=== PATIENT | female | born 1995 | race American Indian/Alaskan Native ===

== ENCOUNTER 2021-09-15 08:29 | Inpatient (IN) | payer OTHER, MEDICAID ==
[2021-09-15 10:51] LABS: Hemoglobin 11.6 gm/dl (10.1-14.3); Mean Corpuscular HGB Conc 33 % (30-34); Mean Corpuscular Volume 81 fl (79-97); Platelet Count 307 K/mm3 (140-440); Red Blood Count 4.33 M/mm3 (3.65-5.03); Red Cell Distribution Width 15.3 % (13.2-15.2)
--- NOTE | 2021-09-15 10:59 | History and Physical Report ---
History of Present Illness Date of examination: 09/15/21 History of present illness: EDC Calculations by LMP: 09/16/2021 Past History : 3 Living Children: 0 Elect. 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 Factors: Smoked Tobacco Use: Never smoker Smokeless Tobacco Use: Never Passive Smoke Exposure: no HIV High Risk Behavior: no Exercise: no Seatbelt Use: 100 % PAP Smear History: Date of Last PAP Smear: 08/16/2018 Results: Normal Past Medical History Surgery (Non-claims representative): Negative Past Surgical History Abnormal PAP: negative AYSE Exposure: negative Infertility: negative Uterine Anomaly: negative Uterine Surgery (not C/S): negative Other Gynecologic Problems: negative Medical History Comments: negative Family Hx: mother-HTN, GM 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 of genital herpes: no Partner hx. of genital herpes: no Varicella/Chicken Pox Status: Immunized Genetic History Congenital Heart Defect: Mom: no Dad: no Jose Armando Disease: Mom: no Dad: no Thalassemia Mom: no Dad: no Neural Tube Defect Mom: no Dad: no Down's Syndrome Mom: no Dad: no Hieu-Sachs Mom: no Dad: no Sickle Cell Disease/Trait Mom: no Dad: no Hemophilia Mom: no Dad: no Muscular Dystrophy Mom: no Dad: no Cystic Fibrosis Mom: no Dad: no Grace Chorea Mom: no Dad: no Mental Retardation Mom: no Dad: no Fragile X Mom: no Dad: no Other Genetic/Chromosomal Disorder Mom: no Dad: no Child w/other defect Mom: no Dad: no Enviromental Exposures Xray Exposure: no Medication, drug, or alcohol use since LMP: no Chemical/Other Exposure: no Exposure to Cat Liter: no Hx of Parvovirus (Fifth Disease): no Occupational Exposure to Children: none Active Medications (reviewed today): None Current Allergies (reviewed today): No known allergies Past History Past Medical History: other (see HPI) Past Surgical History: other (see HPI) PERSONNEL MANAGER History: other (see HPI) Family/Genetic History: other (see HPI) - Obstetrical History Expected Date of Delivery: 09/16/21 Actual Gestation: 39 Week(s) 6 Day(s) : 3 Para: 0 Hx # Term Pregnancies: 0 Number of Pregnancies: 0 Spontaneous Abortions: 0 Induced : 2 Number of Living Children: 0 Medications and Allergies Allergies Allergy/AdvReac Type Severity Reaction Status Date / Time No Known Allergies Allergy Verified 09/15/21 09:22 Home Medications Medication Instructions Recorded Confirmed Last Taken Type Aspirin [[place]] 81 mg PO DAILY 09/15/21 09/15/21 09/14/21 History No.137/Iron/Folic Acd 1 tab PO DAILY 09/15/21 09/15/21 09/14/21 20:00 History [[facility] Tablet] Active Meds: Active Medications Carboprost Tromethamine (Carboprost Tromethamine 250 Mcg/1 Ml Inj) 250 mcg IM ONCE PRN PRN Reason: Uterine Bleeding Ephedrine Sulfate (Ephedrine Sulfate 50 Mg/1 Ml Inj) 10 mg IV Q2M PRN PRN Reason: Hypotension Oxytocin/Sodium Chloride (Pitocin/Ns 30 Unit/500ml) 30 units in 500 mls @ 2 mls/hr IV TITR DASIA; Protocol Lactated Ringer's (Lactated Ringers) 1,000 mls @ 125 mls/hr IV DIRECT DASIA Oxytocin/Sodium Chloride (Pitocin/Ns 30 Unit/500ml) 30 units in 500 mls @ 40 mls/hr IV TITR DASIA; Protocol Lidocaine (Lidocaine (2%) 20 Mg/1 Ml Vial 20 Ml Mdv) 20 ml INFILTRATI ONCE ONE Stop: 09/15/21 10:53 Loperamide HCl (Loperamide 2 Mg Cap) 2 mg PO ONCE PRN PRN Reason: give with Hemabate Methylergonovine Maleate (Methylergonovine Maleate 0.2 Mg/Ml Vial) 0.2 mg IM ONCE PRN PRN Reason: Uterine Bleeding Mineral Oil (Mineral Oil 30 Ml Oral Liqd) 30 ml PO QHS PRN PRN Reason: Constipation Oxytocin (Oxytocin 10 Unit/1 Ml Inj) 10 unit IM ONCE PRN PRN Reason: Uterine Bleeding Terbutaline Sulfate (Terbutaline 1 Mg/1 Ml Inj) 0.25 mg SUB-Q ONCE PRN PRN Reason: Hyperstimulation/Hypertonicity Review of Systems All systems: negative - Vital Signs Vital signs: Vital Signs Pulse BP 100 H 140/81 09/15/21 09:04 09/15/21 09:04 Temp Pulse Resp BP Pulse Ox 113 H 141/82 09/15/21 10:25 09/15/21 10:25 - Physical Exam Breasts: Positive: normal Cardiovascular: Regular rate Lungs: Positive: Normal air movement Abdomen: Positive: normal appearance, soft Genitourinary (Female): Positive: normal external genitalia, normal perenium Vulva: both: normal Uterus: Positive: normal size, normal contour Extremities: Positive: normal Deep Tendon Reflex Grade: Normal +2 - Obstetrical FHR: auscultation normal Uterine Contraction Monitor Mode: External Cervical Dilatation: 4.5 (per sourcing consultant) Uterine Contraction Pattern: Regular Uterine Tone Measurement Phase: Contraction Uterine Contraction Intensity: Mild Results Result Diagrams: 09/15/21 10:25 09/15/21 10:25 Abnormal lab results 09/15/21 Range/Units 10:25 MCH 27 L (28-32) pg RDW 15.3 H (13.2-15.2) % All other labs normal. Assessment and Plan 26y/o @ 39+6 weeks presented with contractions. GBS neg. complicated by maternal obesity. EFW 7#8oz by [facility] office 09/11/2021. Admit for labor, epidural PRN, augment with pitocin PRN. - Patient Problems (1) BMI 40.0-44.9, adult Current Visit: Yes Status: Acute (2) 39 weeks gestation of Current Visit: Yes Status: Acute (3) Elevated blood pressure reading Current Visit: Yes Status: Acute Plan to address problem: pre-e labs ordered no hx HTN during Will monitor closely
[2021-09-15] MEDS ORDERED: CARBOPROST TROMETHAMINE 250 MCG/1 ML INJ IM PRN (11:00)
[2021-09-15] MEDS ORDERED: ePHEDrine SULFATE 50 MG/1 ML INJ IV PRN ×2 (11:00→15:30)
[2021-09-15] MEDS ORDERED: OXYTOCIN DRIP 30 UNITS/500 ML BAG IV SCH ×2 (11:00)
[2021-09-15] MEDS ORDERED: BUTORPHANOL 2 MG/1 ML INJ IV PRN (11:00)
[2021-09-15] MEDS ORDERED: ACETAMINOPHEN 325 MG TAB PO PRN (11:00)
[2021-09-15] MEDS: LACTATED RINGERS 1,000 ML IV SCH ×3 (11:10→14:33)
[2021-09-15] MEDS ORDERED: LIDOCAINE (2%) 20 MG/1 ML VIAL 20 ML MDV INFILTRATI NR (11:30)
[2021-09-15] MEDS ORDERED: miSOPROStol 200 MCG TAB PR PRN (11:30)
[2021-09-15] MEDS ORDERED: fentaNYL 100 MCG/2 ML INJ IV PRN (12:00)
[2021-09-15] MEDS ORDERED: OXYTOCIN 10 UNIT/1 ML INJ IM PRN (12:00)
[2021-09-15] MEDS ORDERED: METHYLERGONOVINE MALEATE 0.2 MG/ML VIAL IM PRN (12:00)
[2021-09-15] MEDS ORDERED: LOPERAMIDE 2 MG CAP PO PRN (12:00)
[2021-09-15] MEDS ORDERED: TERBUTALINE 1 MG/1 ML INJ SUB-Q PRN (12:00)
[2021-09-15] MEDS ORDERED: ONDANSETRON 4 MG/2 ML INJ IV PRN ×2 (12:00→15:30)
[2021-09-15 12:17] LABS: Alanine Aminotransferase 13 units/L (7-56); Uric Acid 6.4 mg/dL (3.5-7.6)
[2021-09-15 15:06] LABS: Bacteria,Urine 1+ /HPF (Negative); Bilirubin,Urine NEG (Negative); Blood,Urine LG (Negative); Color,Urine Yellow (Yellow); Mucus,Urine FEW /HPF; Protein,Urine <15 mg/dL mg/dL (Negative); Urobilinogen,Urine < 2.0 mg/dL (<2.0)
[2021-09-15] MEDS ORDERED: LACTATED RINGERS 250 ML IV SOLN IV ONE (15:07)
--- NOTE | 2021-09-15 15:09 | Anesthesia Consultation ---
Anesthesia Consult and Med Hx Date of service: 09/15/21 - Airway Anesthetic Teeth Evaluation: Good ROM Head & Neck: Adequate Mental/Hyoid Distance: Adequate Mallampati Class: Class III Intubation Access Assessment: Possibly Difficult - Pulmonary Exam CTA: Yes - Cardiac Exam Cardiac Exam: RRR - Pre-Operative Health Status ASA Pre-Surgery Classification: ASA2 Proposed Anesthetic Plan: Epidural - Pulmonary Hx Smoking: No Hx Asthma: No Hx Sleep Apnea: No - Cardiovascular System Hx Hypertension: No Hx Heart Attack/AMI: No Hx Angina: No - Central Nervous System Hx Seizures: No Hx Psychiatric Problems: No - Gastrointestinal Hx Gastroesophageal Reflux Disease: No - Endocrine Hx Renal Disease: No Hx Liver Disease: No Hx Insulin Dependent Diabetes: No Hx Non-Insulin Dependent Diabetes: No Hx Hypothyroidism: No Hx Hyperthyroidism: No - Hematic Hx Anemia: No Hx Sickle Cell Disease: No - Other Systems Hx Alcohol Use: No Hx Obesity: Yes
--- NOTE | 2021-09-15 15:11 | Progress Note ---
Labor Epidural - Labor Epidural Start Time: 14:45 Stop Time: 15:05 Performed by:: RUSSELL HILLIARD Procedure: Patient is requesting epidural for labor and pain. H&P, labs were reviewed. Patient IDed, H&P reviewed, all questions and concerns were answered, and consent was signed. Timeout was performed at bedside. Patient in sitting position. Sterile prep and drape was performed. 3ml of 1% lidocaine skin wheal at L[3]- L [4]. 17-gauge Tuohy epidural needle was advanced to loss of resistance with air technique 7cm. Negative CSF negative blood. Epidural catheter advanced to [12] centimeters. [Positive] Aspiration of heme [Positive] test dose. Catheter removed and flushed. 3ml of 1% lidocaine skin wheal at L[2]- L [3]. 17-gauge Tuohy epidural needle was advanced to loss of resistance with air technique 7cm. Negative CSF negative blood. Epidural catheter advanced to [13] centimeters. [negative] Aspiration [negative] test dose. Sterile dressing applied. Patient tolerated procedure.
[2021-09-15] MEDS ORDERED: NalbUPHINE 10 MG/1 ML INJ IV PRN (15:30)
[2021-09-15] MEDS ORDERED: NALOXONE 2 MG/2 ML INJ IV PRN (15:30)
[2021-09-15] MEDS ORDERED: diphenhydrAMINE 50 MG/ML VIAL IV PRN (15:30)
--- NOTE | 2021-09-15 17:06 | Progress Note ---
Assessment and Plan Pt comfortable in bed after Epidural. FOB at bedside no concerns. AROM clear fluid. Pitocin at 6mU/hr. Anticipate . - Patient Problems (1) BMI 40.0-44.9, adult Current Visit: Yes Status: Acute (2) 39 weeks gestation of Current Visit: Yes Status: Acute Plan to address problem: Augmentation with pitocin AROM clear (3) Elevated blood pressure reading Current Visit: Yes Status: Acute Plan to address problem: Continue to monitor B/P Lab work reviewed and normal No s/s of Pre-E Subjective - Subjective Date of service: 09/15/21 Interval history: EDC Calculations by LMP: 09/16/2021 Past History : 3 Living Children: 0 Elect. 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 Tobacco Use: Never smoker Smokeless Tobacco Use: Never Passive Smoke Exposure: no HIV High Risk Behavior: no Exercise: no Seatbelt Use: 100 % PAP Smear History: Date of Last PAP Smear: 08/16/2018 Results: Normal Past Medical History Surgery (Non-art sales consultant): Negative Past Surgical History Abnormal PAP: negative AYSE Exposure: negative Infertility: negative Uterine Anomaly: negative Uterine Surgery (not C/S): negative Other Gynecologic Problems: negative Medical History Comments: negative Family Hx: mother-HTN, GM 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 of genital herpes: no Partner hx. of genital herpes: no Varicella/Chicken Pox Status: Immunized Genetic History Congenital Heart Defect: Mom: no Dad: no Jose Armando Disease: Mom: no Dad: no Thalassemia Mom: no Dad: no Neural Tube Defect Mom: no Dad: no Down's Syndrome Mom: no Dad: no Hieu-Sachs Mom: no Dad: no Sickle Cell Disease/Trait Mom: no Dad: no Hemophilia Mom: no Dad: no Muscular Dystrophy Mom: no Dad: no Cystic Fibrosis Mom: no Dad: no [place] Chorea Mom: no Dad: no Mental Retardation Mom: no Dad: no Fragile X Mom: no Dad: no Other Genetic/Chromosomal Disorder Mom: no Dad: no Child w/other defect Mom: no Dad: no Enviromental Exposures Xray Exposure: no Medication, drug, or alcohol use since LMP: no Chemical/Other Exposure: no Exposure to Cat Liter: no Hx of Parvovirus (Fifth Disease): no Occupational Exposure to Children: none Active Medications (reviewed today): None Current Allergies (reviewed today): No known allergies Patient reports: new complaints, movement normal Objective - Vital Signs Vital Signs: Vital Signs - 12hr 09/15/21 09/15/21 09/15/21 09:04 10:25 11:12 Temperature 98.1 F Pulse Rate 100 H 113 H Respiratory 16 Rate Blood Pressure 140/81 141/82 O2 Sat by Pulse Oximetry O2 Sat by Pulse Oximetry [ Bilateral Throughout] 09/15/21 09/15/21 09/15/21 12:30 12:48 12:53 Temperature Pulse Rate 89 97 H Respiratory Rate Blood Pressure O2 Sat by Pulse 98 99 Oximetry O2 Sat by Pulse 98 Oximetry [ Bilateral Throughout] 09/15/21 09/15/21 09/15/21 12:58 13:03 13:08 Temperature Pulse Rate 112 H 94 H 103 H Respiratory Rate Blood Pressure O2 Sat by Pulse 98 99 98 Oximetry O2 Sat by Pulse Oximetry [ Bilateral Throughout] 09/15/21 09/15/21 09/15/21 13:13 13:18 13:23 Temperature Pulse Rate 92 H 86 87 Respiratory Rate Blood Pressure O2 Sat by Pulse 98 99 98 Oximetry O2 Sat by Pulse Oximetry [ Bilateral Throughout] 09/15/21 09/15/21 09/15/21 13:28 13:33 13:38 Temperature Pulse Rate 113 H 85 118 H Respiratory Rate Blood Pressure O2 Sat by Pulse 99 97 94 Oximetry O2 Sat by Pulse Oximetry [ Bilateral Throughout] 09/15/21 09/15/21 09/15/21 13:41 13:43 13:48 Temperature Pulse Rate 87 84 83 Respiratory Rate Blood Pressure O2 Sat by Pulse 94 95 98 Oximetry O2 Sat by Pulse Oximetry [ Bilateral Throughout] 09/15/21 09/15/21 09/15/21 13:53 13:58 14:03 Temperature Pulse Rate 105 H 84 112 H Respiratory Rate Blood Pressure O2 Sat by Pulse 97 99 98 Oximetry O2 Sat by Pulse Oximetry [ Bilateral Throughout] 09/15/21 09/15/21 09/15/21 14:08 14:13 14:18 Temperature Pulse Rate 87 88 109 H Respiratory Rate Blood Pressure O2 Sat by Pulse 97 99 99 Oximetry O2 Sat by Pulse Oximetry [ Bilateral Throughout] 09/15/21 09/15/21 09/15/21 14:23 14:28 14:32 Temperature Pulse Rate 85 116 H Respiratory Rate Blood Pressure O2 Sat by Pulse 98 99 38 L Oximetry O2 Sat by Pulse Oximetry [ Bilateral Throughout] 09/15/21 09/15/21 09/15/21 14:33 14:37 14:38 Temperature Pulse Rate 78 120 H 114 H Respiratory Rate Blood Pressure 148/93 O2 Sat by Pulse 67 L 98 Oximetry O2 Sat by Pulse Oximetry [ Bilateral Throughout] 09/15/21 09/15/21 09/15/21 14:39 14:41 14:43 Temperature Pulse Rate 116 H 117 H 104 H Respiratory Rate Blood Pressure 158/96 162/88 157/88 O2 Sat by Pulse 97 Oximetry O2 Sat by Pulse Oximetry [ Bilateral Throughout] 09/15/21 09/15/21 09/15/21 14:45 14:47 14:48 Temperature Pulse Rate 142 H 114 H 123 H Respiratory Rate Blood Pressure 160/75 163/85 O2 Sat by Pulse 95 Oximetry O2 Sat by Pulse Oximetry [ Bilateral Throughout] 09/15/21 09/15/21 09/15/21 14:49 14:51 14:53 Temperature Pulse Rate 129 H 116 H 118 H Respiratory Rate Blood Pressure 161/74 159/78 155/62 O2 Sat by Pulse 97 Oximetry O2 Sat by Pulse Oximetry [ Bilateral Throughout] 09/15/21 09/15/21 09/15/21 14:55 14:57 14:58 Temperature Pulse Rate 120 H 130 H 122 H Respiratory Rate Blood Pressure 171/82 161/73 O2 Sat by Pulse 96 Oximetry O2 Sat by Pulse Oximetry [ Bilateral Throughout] 09/15/21 09/15/21 09/15/21 14:59 15:01 15:03 Temperature Pulse Rate 117 H 115 H 107 H Respiratory Rate Blood Pressure 163/80 156/78 166/85 O2 Sat by Pulse 93 Oximetry O2 Sat by Pulse Oximetry [ Bilateral Throughout] 09/15/21 09/15/21 09/15/21 15:05 15:07 15:08 Temperature Pulse Rate 107 H 103 H 99 H Respiratory Rate Blood Pressure 147/83 141/76 O2 Sat by Pulse 94 98 Oximetry O2 Sat by Pulse Oximetry [ Bilateral Throughout] 09/15/21 09/15/21 09/15/21 15:13 15:18 15:21 Temperature Pulse Rate 119 H 98 H 108 H Respiratory Rate Blood Pressure O2 Sat by Pulse 98 96 86 Oximetry O2 Sat by Pulse Oximetry [ Bilateral Throughout] 09/15/21 09/15/21 09/15/21 15:23 15:28 15:33 Temperature Pulse Rate 103 H 121 H 113 H Respiratory Rate Blood Pressure 130/75 O2 Sat by Pulse 85 100 93 Oximetry O2 Sat by Pulse Oximetry [ Bilateral Throughout] 09/15/21 09/15/21 09/15/21 15:38 15:43 15:48 Temperature Pulse Rate 99 H 97 H 114 H Respiratory Rate Blood Pressure O2 Sat by Pulse 98 97 97 Oximetry O2 Sat by Pulse Oximetry [ Bilateral Throughout] 09/15/21 09/15/21 09/15/21 15:53 15:58 16:03 Temperature Pulse Rate 107 H 114 H 110 H Respiratory Rate Blood Pressure O2 Sat by Pulse 97 97 98 Oximetry O2 Sat by Pulse Oximetry [ Bilateral Throughout] 09/15/21 09/15/21 09/15/21 16:08 16:13 16:18 Temperature Pulse Rate 106 H 103 H 104 H Respiratory Rate Blood Pressure 106/70 O2 Sat by Pulse 96 97 98 Oximetry O2 Sat by Pulse Oximetry [ Bilateral Throughout] 09/15/21 09/15/21 09/15/21 16:22 16:23 16:28 Temperature Pulse Rate 123 H 90 107 H Respiratory Rate Blood Pressure 103/55 O2 Sat by Pulse 97 98 Oximetry O2 Sat by Pulse Oximetry [ Bilateral Throughout] 09/15/21 09/15/21 09/15/21 16:33 16:38 16:39 Temperature Pulse Rate 114 H 97 H 89 Respiratory Rate Blood Pressure 110/74 O2 Sat by Pulse 97 98 Oximetry O2 Sat by Pulse Oximetry [ Bilateral Throughout] 09/15/21 09/15/21 09/15/21 16:43 16:48 16:52 Temperature Pulse Rate 108 H 111 H 104 H Respiratory Rate Blood Pressure 118/74 O2 Sat by Pulse 97 98 94 Oximetry O2 Sat by Pulse Oximetry [ Bilateral Throughout] 09/15/21 09/15/21 16:53 16:58 Temperature Pulse Rate 96 H 101 H Respiratory Rate Blood Pressure O2 Sat by Pulse 96 96 Oximetry O2 Sat by Pulse Oximetry [ Bilateral Throughout] - Exam Breasts: normal Abdomen: Present: normal appearance, soft Vulva: both: normal Uterus: Present: normal, other (gravid) FHR: category 1 Uterine Contraction Monitor Mode: External Cervical Dilatation: 6 (AROM clear) Cervical Effacement Percentage: 90 station: 0 Uterine Contraction Frequency (min): q4-5 mins Uterine Contraction Pattern: Irregular Uterine Tone Measurement Phase: Resting Uterine Contraction Intensity: Mild Extremities: normal - Labs Labs: Abnormal Labs 09/15/21 09/15/21 10:25 10:25 MCH 27 L RDW 15.3 H Lactate Dehydrogenase 182 H Laboratory Results - last 24 hr 09/15/21 09/15/21 09/15/21 10:25 10:25 10:25 WBC 9.0 RBC 4.33 Hgb 11.6 Hct 35.0 MCV 81 MCH 27 L MCHC 33 RDW 15.3 H Plt Count 307 Creatinine 0.6 Estimated GFR > 60 Uric Acid 6.4 AST 15 ALT 13 Lactate Dehydrogenase 182 H Urine Color Urine Turbidity Urine pH Ur Specific [place] Urine Protein Urine Glucose (UA) Urine Ketones Urine Blood Urine Nitrite Urine Bilirubin Urine Urobilinogen Ur Leukocyte Esterase Urine WBC (Auto) Urine RBC (Auto) U Epithel Cells (Auto) Urine Bacteria (Auto) Urine Mucus Syphilis IgG/IgM Ab Nonreactive Blood Type Antibody Screen 09/15/21 09/15/21 10:35 14:48 WBC RBC Hgb Hct MCV MCH MCHC RDW Plt Count Creatinine Estimated GFR Uric Acid AST ALT Lactate Dehydrogenase Urine Color Yellow Urine Turbidity Clear Urine pH 7.0 Ur Specific [place] 1.005 Urine Protein <15 mg/dl Urine Glucose (UA) Neg Urine Ketones 20 Urine Blood Lg Urine Nitrite Neg Urine Bilirubin Neg Urine Urobilinogen < 2.0 Ur Leukocyte Esterase Neg Urine WBC (Auto) 2.0 Urine RBC (Auto) 1.0 U Epithel Cells (Auto) 7.0 Urine Bacteria (Auto) 1+ Urine Mucus Few Syphilis IgG/IgM Ab Blood Type A POSITIVE Antibody Screen Negative
[2021-09-15] MEDS: fentaNYL-BUPIV 2 MCG/ML-0.125% 200 MCG/100 ML BAG EPIDURAL SCH (17:41)
--- NOTE | 2021-09-15 19:52 | Progress Note ---
Assessment and Plan No significant cervical change since last SVE. IUPC placed without difficulty and functioning well. Will continue to titrate pitocin and change positions. Anticipate . ANGELES Pittman CNM - Patient Problems (1) BMI 40.0-44.9, adult Current Visit: Yes Status: Acute (2) 39 weeks gestation of Current Visit: Yes Status: Acute (3) Elevated blood pressure reading Current Visit: Yes Status: Acute Subjective - Subjective Date of service: 09/15/21 Principal diagnosis: IUP @39.6 labor Interval history: EDC Calculations by LMP: 09/16/2021 Past History : 3 Living Children: 0 Elect. 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 Risk Factors: Smoked Tobacco Use: Never smoker Smokeless Tobacco Use: Never Passive Smoke Exposure: no HIV High Risk Behavior: no Exercise: no Seatbelt Use: 100 % PAP Smear History: Date of Last PAP Smear: 08/16/2018 Results: Normal Past Medical History Surgery (Non-automatic seamer): Negative Past Surgical History Abnormal PAP: negative AYSE Exposure: negative Infertility: negative Uterine Anomaly: negative Uterine Surgery (not C/S): negative Other Gynecologic Problems: negative Medical History Comments: negative Family Hx: mother-HTN, GM Social Hx: no 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 of genital herpes: no Partner hx. of genital herpes: no Varicella/Chicken Pox Status: Immunized Genetic History Congenital Heart Defect: Mom: no Dad: no Jose Armando Disease: Mom: no Dad: no Thalassemia Mom: no Dad: no Neural Tube Defect Mom: no Dad: no Down's Syndrome Mom: no Dad: no Hieu-Sachs Mom: no Dad: no Sickle Cell Disease/Trait Mom: no Dad: no Hemophilia Mom: no Dad: no Muscular Dystrophy Mom: no Dad: no Cystic Fibrosis Mom: no Dad: no [place] Chorea Mom: no Dad: no Mental Retardation Mom: no Dad: no Fragile X Mom: no Dad: no Other Genetic/Chromosomal Disorder Mom: no Dad: no Child w/other defect Mom: no Dad: no Enviromental Exposures Xray Exposure: no Medication, drug, or alcohol use since LMP: no Chemical/Other Exposure: no Exposure to Cat Liter: no Hx of Parvovirus (Fifth Disease): no Occupational Exposure to Children: none Active Medications (reviewed today): None Current Allergies (reviewed today): No known allergies Patient reports: movement normal, no new complaints Objective - Vital Signs Vital Signs: Vital Signs - 12hr 09/15/21 09/15/21 09/15/21 09:04 10:25 11:12 Temperature 98.1 F Pulse Rate 100 H 113 H Respiratory 16 Rate Blood Pressure 140/81 141/82 O2 Sat by Pulse Oximetry O2 Sat by Pulse Oximetry [ Bilateral Throughout] 09/15/21 09/15/21 09/15/21 12:30 12:48 12:53 Temperature Pulse Rate 89 97 H Respiratory Rate Blood Pressure O2 Sat by Pulse 98 99 Oximetry O2 Sat by Pulse 98 Oximetry [ Bilateral Throughout] 09/15/21 09/15/21 09/15/21 12:58 13:03 13:08 Temperature Pulse Rate 112 H 94 H 103 H Respiratory Rate Blood Pressure O2 Sat by Pulse 98 99 98 Oximetry O2 Sat by Pulse Oximetry [ Bilateral Throughout] 09/15/21 09/15/21 09/15/21 13:13 13:18 13:23 Temperature Pulse Rate 92 H 86 87 Respiratory Rate Blood Pressure O2 Sat by Pulse 98 99 98 Oximetry O2 Sat by Pulse Oximetry [ Bilateral Throughout] 09/15/21 09/15/21 09/15/21 13:28 13:33 13:38 Temperature Pulse Rate 113 H 85 118 H Respiratory Rate Blood Pressure O2 Sat by Pulse 99 97 94 Oximetry O2 Sat by Pulse Oximetry [ Bilateral Throughout] 09/15/21 09/15/21 09/15/21 13:41 13:43 13:48 Temperature Pulse Rate 87 84 83 Respiratory Rate Blood Pressure O2 Sat by Pulse 94 95 98 Oximetry O2 Sat by Pulse Oximetry [ Bilateral Throughout] 09/15/21 09/15/21 09/15/21 13:53 13:58 14:03 Temperature Pulse Rate 105 H 84 112 H Respiratory Rate Blood Pressure O2 Sat by Pulse 97 99 98 Oximetry O2 Sat by Pulse Oximetry [ Bilateral Throughout] 09/15/21 09/15/2109/15/22 14:08 14:13 14:18 Temperature Pulse Rate 87 88 109 H Respiratory Rate Blood Pressure O2 Sat by Pulse 97 99 99 Oximetry O2 Sat by Pulse Oximetry [ Bilateral Throughout] 09/15/21 09/15/21 09/15/21 14:23 14:28 14:32 Temperature Pulse Rate 85 116 H Respiratory Rate Blood Pressure O2 Sat by Pulse 98 99 38 L Oximetry O2 Sat by Pulse Oximetry [ Bilateral Throughout] 09/15/21 09/15/21 09/15/21 14:33 14:37 14:38 Temperature Pulse Rate 78 120 H 114 H Respiratory Rate Blood Pressure 148/93 O2 Sat by Pulse 67 L 98 Oximetry O2 Sat by Pulse Oximetry [ Bilateral Throughout] 09/15/21 09/15/21 09/15/21 14:39 14:41 14:43 Temperature Pulse Rate 116 H 117 H 104 H Respiratory Rate Blood Pressure 158/96 162/88 157/88 O2 Sat by Pulse 97 Oximetry O2 Sat by Pulse Oximetry [ Bilateral Throughout] 09/15/21 09/15/21 09/15/21 14:45 14:47 14:48 Temperature Pulse Rate 142 H 114 H 123 H Respiratory Rate Blood Pressure 160/75 163/85 O2 Sat by Pulse 95 Oximetry O2 Sat by Pulse Oximetry [ Bilateral Throughout] 09/15/21 09/15/21 09/15/21 14:49 14:51 14:53 Temperature Pulse Rate 129 H 116 H 118 H Respiratory Rate Blood Pressure 161/74 159/78 155/62 O2 Sat by Pulse 97 Oximetry O2 Sat by Pulse Oximetry [ Bilateral Throughout] 09/15/21 09/15/21 09/15/21 14:55 14:57 14:58 Temperature Pulse Rate 120 H 130 H 122 H Respiratory Rate Blood Pressure 171/82 161/73 O2 Sat by Pulse 96 Oximetry O2 Sat by Pulse Oximetry [ Bilateral Throughout] 09/15/21 09/15/21 09/15/21 14:59 15:01 15:03 Temperature Pulse Rate 117 H 115 H 107 H Respiratory Rate Blood Pressure 163/80 156/78 166/85 O2 Sat by Pulse 93 Oximetry O2 Sat by Pulse Oximetry [ Bilateral Throughout] 09/15/21 09/15/21 09/15/21 15:05 15:07 15:08 Temperature Pulse Rate 107 H 103 H 99 H Respiratory Rate Blood Pressure 147/83 141/76 O2 Sat by Pulse 94 98 Oximetry O2 Sat by Pulse Oximetry [ Bilateral Throughout] 09/15/21 09/15/21 09/15/21 15:13 15:18 15:21 Temperature Pulse Rate 119 H 98 H 108 H Respiratory Rate Blood Pressure O2 Sat by Pulse 98 96 86 Oximetry O2 Sat by Pulse Oximetry [ Bilateral Throughout] 09/15/21 09/15/21 09/15/21 15:23 15:28 15:33 Temperature Pulse Rate 103 H 121 H 113 H Respiratory Rate Blood Pressure 130/75 O2 Sat by Pulse 85 100 93 Oximetry O2 Sat by Pulse Oximetry [ Bilateral Throughout] 09/15/21 09/15/21 09/15/21 15:38 15:43 15:48 Temperature Pulse Rate 99 H 97 H 114 H Respiratory Rate Blood Pressure O2 Sat by Pulse 98 97 97 Oximetry O2 Sat by Pulse Oximetry [ Bilateral Throughout] 09/15/21 09/15/21 09/15/21 15:53 15:58 16:03 Temperature Pulse Rate 107 H 114 H 110 H Respiratory Rate Blood Pressure O2 Sat by Pulse 97 97 98 Oximetry O2 Sat by Pulse Oximetry [ Bilateral Throughout] 09/15/21 09/15/21 09/15/21 16:08 16:13 16:18 Temperature Pulse Rate 106 H 103 H 104 H Respiratory Rate Blood Pressure 106/70 O2 Sat by Pulse 96 97 98 Oximetry O2 Sat by Pulse Oximetry [ Bilateral Throughout] 09/15/21 09/15/21 09/15/21 16:22 16:23 16:28 Temperature Pulse Rate 123 H 90 107 H Respiratory Rate Blood Pressure 103/55 O2 Sat by Pulse 97 98 Oximetry O2 Sat by Pulse Oximetry [ Bilateral Throughout] 09/15/21 09/15/21 09/15/21 16:33 16:38 16:39 Temperature Pulse Rate 114 H 97 H 89 Respiratory Rate Blood Pressure 110/74 O2 Sat by Pulse 97 98 Oximetry O2 Sat by Pulse Oximetry [ Bilateral Throughout] 09/15/21 09/15/21 09/15/21 16:43 16:48 16:52 Temperature Pulse Rate 108 H 111 H 104 H Respiratory Rate Blood Pressure 118/74 O2 Sat by Pulse 97 98 94 Oximetry O2 Sat by Pulse Oximetry [ Bilateral Throughout] 09/15/21 09/15/21 09/15/21 16:53 16:58 17:03 Temperature Pulse Rate 96 H 101 H 89 Respiratory Rate Blood Pressure O2 Sat by Pulse 96 96 96 Oximetry O2 Sat by Pulse Oximetry [ Bilateral Throughout] 09/15/21 09/15/21 09/15/21 17:07 17:08 17:09 Temperature Pulse Rate 103 H 108 H 102 H Respiratory Rate Blood Pressure 108/53 O2 Sat by Pulse 94 96 Oximetry O2 Sat by Pulse Oximetry [ Bilateral Throughout] 09/15/21 09/15/21 09/15/21 17:13 17:18 17:22 Temperature Pulse Rate 88 90 89 Respiratory Rate Blood Pressure 101/56 O2 Sat by Pulse 97 94 Oximetry O2 Sat by Pulse Oximetry [ Bilateral Throughout] 09/15/21 09/15/21 09/15/21 17:23 17:28 17:33 Temperature Pulse Rate 94 H 90 90 Respiratory Rate Blood Pressure O2 Sat by Pulse 98 97 97 Oximetry O2 Sat by Pulse Oximetry [ Bilateral Throughout] 09/15/21 09/15/21 09/15/21 17:38 17:39 17:43 Temperature Pulse Rate 94 H 103 H 100 H Respiratory Rate Blood Pressure 122/72 O2 Sat by Pulse 93 97 Oximetry O2 Sat by Pulse Oximetry [ Bilateral Throughout] 09/15/21 09/15/21 09/15/21 17:48 17:50 17:52 Temperature Pulse Rate 107 H 97 H 90 Respiratory Rate Blood Pressure 128/69 O2 Sat by Pulse 97 94 Oximetry O2 Sat by Pulse Oximetry [ Bilateral Throughout] 09/15/21 09/15/21 09/15/21 17:53 17:58 18:03 Temperature Pulse Rate 105 H 90 91 H Respiratory Rate Blood Pressure O2 Sat by Pulse 100 96 99 Oximetry O2 Sat by Pulse Oximetry [ Bilateral Throughout] 09/15/21 09/15/21 09/15/21 18:07 18:08 18:13 Temperature Pulse Rate 70 95 H 87 Respiratory Rate Blood Pressure 115/71 O2 Sat by Pulse 76 L 97 99 Oximetry O2 Sat by Pulse Oximetry [ Bilateral Throughout] 09/15/21 09/15/21 09/15/21 18:18 18:23 18:28 Temperature Pulse Rate 88 99 H 88 Respiratory Rate Blood Pressure 121/67 O2 Sat by Pulse 98 98 99 Oximetry O2 Sat by Pulse Oximetry [ Bilateral Throughout] 0209/15/21 09/15/21 18:33 18:38 18:43 Temperature Pulse Rate 85 89 89 Respiratory Rate Blood Pressure 127/73 O2 Sat by Pulse 99 97 98 Oximetry O2 Sat by Pulse Oximetry [ Bilateral Throughout] 09/15/21 09/15/21 09/15/21 18:48 18:53 18:54 Temperature Pulse Rate 93 H 86 90 Respiratory Rate Blood Pressure 134/68 O2 Sat by Pulse 99 100 Oximetry O2 Sat by Pulse Oximetry [ Bilateral Throughout] 09/15/21 09/15/21 09/15/21 18:58 19:01 19:03 Temperature Pulse Rate 82 89 92 H Respiratory Rate Blood Pressure O2 Sat by Pulse 100 90 95 Oximetry O2 Sat by Pulse Oximetry [ Bilateral Throughout] 09/15/21 09/15/21 09/15/21 19:07 19:08 19:13 Temperature Pulse Rate 98 H 97 H 97 H Respiratory Rate Blood Pressure 129/70 O2 Sat by Pulse 98 97 Oximetry O2 Sat by Pulse Oximetry [ Bilateral Throughout] 09/15/21 09/15/21 09/15/21 19:18 19:23 19:28 Temperature Pulse Rate 87 87 85 Respiratory Rate Blood Pressure 135/78 O2 Sat by Pulse 96 98 96 Oximetry O2 Sat by Pulse Oximetry [ Bilateral Throughout] 09/15/21 09/15/21 09/15/21 19:33 19:35 19:38 Temperature Pulse Rate 86 93 H 102 H Respiratory Rate Blood Pressure 150/73 O2 Sat by Pulse 99 93 96 Oximetry O2 Sat by Pulse Oximetry [ Bilateral Throughout] 09/15/21 09/15/21 19:41 19:43 Temperature Pulse Rate 93 H 95 H Respiratory Rate Blood Pressure O2 Sat by Pulse 93 95 Oximetry O2 Sat by Pulse Oximetry [ Bilateral Throughout] - Exam Abdomen: Present: normal appearance Cervical Dilatation: 6 Cervical Effacement Percentage: 80 station: -1 Uterine Contraction Frequency (min): 2-3 Uterine Contraction Pattern: Regular Uterine Tone Measurement Phase: Resting Uterine Contraction Intensity: Moderate Extremities: normal - Labs Labs: Abnormal Labs 09/15/21 09/15/21 10:25 10:25 MCH 27 L RDW 15.3 H Lactate Dehydrogenase 182 H Laboratory Results - last 24 hr 09/15/21 09/15/21 09/15/21 10:25 10:25 10:25 WBC 9.0 RBC 4.33 Hgb 11.6 Hct 35.0 MCV 81 MCH 27 L MCHC 33 RDW 15.3 H Plt Count 307 Creatinine 0.6 Estimated GFR > 60 Uric Acid 6.4 AST 15 ALT 13 Lactate Dehydrogenase 182 H Urine Color Urine Turbidity Urine pH Ur Specific [place] Urine Protein Urine Glucose (UA) Urine Ketones Urine Blood Urine Nitrite Urine Bilirubin Urine Urobilinogen Ur Leukocyte Esterase Urine WBC (Auto) Urine RBC (Auto) U Epithel Cells (Auto) Urine Bacteria (Auto) Urine Mucus Syphilis IgG/IgM Ab Nonreactive Blood Type Antibody Screen 09/15/21 09/15/21 10:35 14:48 WBC RBC Hgb Hct MCV MCH MCHC RDW Plt Count Creatinine Estimated GFR Uric Acid AST ALT Lactate Dehydrogenase Urine Color Yellow Urine Turbidity Clear Urine pH 7.0 Ur Specific [place] 1.005 Urine Protein <15 mg/dl Urine Glucose (UA) Neg Urine Ketones 20 Urine Blood Lg Urine Nitrite Neg Urine Bilirubin Neg Urine Urobilinogen < 2.0 Ur Leukocyte Esterase Neg Urine WBC (Auto) 2.0 Urine RBC (Auto) 1.0 U Epithel Cells (Auto) 7.0 Urine Bacteria (Auto) 1+ Urine Mucus Few Syphilis IgG/IgM Ab Blood Type A POSITIVE Antibody Screen Negative
[2021-09-15] MEDS ORDERED: MINERAL OIL 30 ML ORAL LIQD PO PRN (22:00)
[2021-09-16] MEDS: LACTATED RINGERS 1,000 ML IV SCH (00:31)
[2021-09-16] MEDS: fentaNYL-BUPIV 2 MCG/ML-0.125% 200 MCG/100 ML BAG EPIDURAL SCH (00:31)
--- NOTE | 2021-09-16 01:45 | Procedure Note ---
OB Delivery Note - Delivery Date of Delivery: 09/16/21 Director Of Community Services: MARY JO GUNTER Estimated blood loss: 200cc - Vaginal Delivery presentation: vertex Delivery position: OA Delivery augmentation: rupture of membranes, pitocin Delivery monitor: external FHT, internal uterine Route of delivery: Delivery placenta: spontaneous Episiotomy: none Delivery laceration: 1st degree, vaginal side wall Delivery repair: vicryl Anesthesia: epidural Delivery comments: Viable Baby boy delivered over an intact perineum. NATHALY presentation. Body delivered with ease. 3 vessel cord clamped and cut. Baby handed over to NICU team. Placenta delivered spontaneously, intact and complete. Uterine tone firm with massage and IV pitocin. Perineum inspected. left periurethral laceration with repair and 1st degree laceration, no repair necessary with good hemostasis. Baby wgt 7#6oz APGARS 7/9. Mom and baby LDR stable. ANGELES Pittman CNM - Infant A at 1 minute: 7 at 5 minutes: 9 Infant Gender: Male (wgt 7#6oz)
[2021-09-16] MEDS ORDERED: KETOROLAC 30 MG/1 ML INJ IV PRN (01:52)
[2021-09-16] MEDS ORDERED: LANOLIN/ZINC/DIMETHICONE (LANSINOH) 7 GM TP PRN (01:52)
[2021-09-16] MEDS ORDERED: WITCH HAZEL/ GLYCERIN PAD TP PRN (01:52)
[2021-09-16] MEDS ORDERED: PROMETHAZINE 25 MG RECT SUPP PR PRN (01:52)
[2021-09-16] MEDS ORDERED: diphenhydrAMINE 25 MG CAP PO PRN (01:52)
[2021-09-16] MEDS ORDERED: MAGNESIUM HYDROXIDE (MOM) ORAL LIQD UDC PO PRN (01:52)
[2021-09-16] MEDS ORDERED: PROMETHAZINE 25 MG TAB PO PRN (01:52)
[2021-09-16] MEDS ORDERED: ONDANSETRON 4 MG/2 ML INJ IV PRN (01:52)
[2021-09-16] MEDS ORDERED: BENZOCAINE/MENTHOL 20/0.5% TOP SPRAY 56 GM TP PRN (01:52)
[2021-09-16] MEDS: PRENATAL VIT27-FE FUMARATE-FOLIC ACID VIT TAB PO SCH (10:19)
[2021-09-16] MEDS: IBUPROFEN 800 MG TAB PO SCH ×3 (12:20→23:47)
--- NOTE | 2021-09-16 14:21 | Post Anesthesia Evaluation ---
- Post Anesthesia Evaluation Patient Participated: Yes Airway Patent: Yes Stable Respiratory Function: Yes Nausea/Vomiting: No Temp > 96.8F: Yes Pain Manageable: Yes Adequeate Hydration: Yes Anesthesia Complications: No Block Receding Appropriately: Yes Patient on Ventilator: No
[2021-09-16 15:04] LABS: Hematocrit 31.1 % (30.3-42.9)
--- NOTE | 2021-09-17 01:39 | Progress Note ---
Assessment and Plan A: 26 y.o. s/p # term, elevated blood pressures after delivery, now WNL with normal labs. P: Continue with care. Continue to monitor blood pressures. Anticipate discharge home on 09/17/2021. Subjective - Subjective Date of service: 09/16/21 (Late Entry, pt seen on 08/16 @ 1pm) Principal diagnosis: s/p , Interval history: Pt with elevated blood pressures after delivery. She denies BEDOLLA, blurred vision, spots before her eyes, chest pain, shortness of breath, and upper abdominal pain. Patient reports: appetite normal, voiding normally, pain well controlled, flatus, ambulating normally [place]: doing well Objective - Vital Signs Latest vital signs: Vital Signs Temp Pulse Resp BP BP Pulse Ox Pulse Ox 09/16/21 23:46 98 09/16/21 22:00 97 09/16/21 20:15 98 09/16/21 17:12 98.3 F 109 H 18 105/59 97 09/16/21 13:06 97.6 F 110 H 18 117/69 98 09/16/21 08:30 100 09/16/21 08:15 97.5 F L 111 H 18 126/74 98 09/16/21 04:00 99.4 F 110 H 21 124/71 100 100 09/16/21 02:53 88 139/68 09/16/21 02:50 99 H 95 09/16/21 02:45 92 H 100 09/16/21 02:40 90 100 09/16/21 02:38 93 H 132/71 09/16/21 02:36 93 H 87 09/16/21 02:35 93 H 99 09/16/21 02:30 90 100 09/16/21 02:28 91 H 94 09/16/21 02:25 91 H 100 09/16/21 02:20 94 H 100 09/16/21 02:15 88 99 09/16/21 02:10 90 100 09/16/21 02:07 93 H 139/71 09/16/21 02:05 94 H 99 09/16/21 02:01 86 72 L 09/16/21 02:00 82 87 09/16/21 01:55 102 H 89 09/16/21 01:53 105 H 144/66 09/16/21 01:50 106 H 94 09/16/21 01:45 106 H 99 09/16/21 01:41 84 94 09/16/21 01:40 97 H 95 Intake and Output 09/16/21 09/16/21 09/17/21 14:59 22:59 06:59 Intake Total 240 Balance 240 Intake: Oral 240 Other: Total, Intake Amount 240 # Voids Void 1 - Exam Narrative Exam: Pt with some elevated blood pressures after delivery. Blood pressure ranges now 105-126/50-70's. Pre Eclampsia labs drawn and WNL. Breasts: Present: deferred Cardiovascular: Present: Regular rate Lungs: Present: Normal air movement Abdomen: Present: normal appearance, soft Uterus: Present: normal, firm - Labs Labs: Abnormal lab results 09/16/21 Range/Units 13:46 Hgb 10.0 L (10.1-14.3) gm/dl
[2021-09-17] MEDS: IBUPROFEN 800 MG TAB PO SCH ×2 (05:25→10:28)
--- NOTE | 2021-09-17 08:14 | Discharge Summary ---
Providers - Providers Date of Admission: 09/16/21 01:52 Date of discharge: 09/17/21 (desires d/c home today) Attending physician: HEAVEN NAVARRO Primary care physician: HEAVEN NAVARRO Hospitalization Reason for admission: Labor Condition: Good Pertinent studies: post delivery H&H 10.0/31.1 Procedures: Hospital course: uncomplicated and course Disposition: 01 HOME / SELF CARE / HOMELESS Final Discharge Diagnosis (Prints w/discharge instructions): Time spent for discharge: 20 - Discharge Diagnoses (1) BMI 40.0-44.9, adult Status: Acute (2) (normal spontaneous vaginal delivery) Status: Acute Core Measure Documentation - Palliative Care Palliative Care/ Comfort Measures: Not Applicable - Core Measures Any of the following diagnoses?: none Exam - Constitutional Vitals: Temp Pulse Resp BP Pulse Ox 98.3 F 95 H 20 103/64 98 09/17/21 04:42 09/17/21 04:42 09/17/21 04:42 09/17/21 04:42 09/17/21 05:24 General appearance: Present: no acute distress, well-nourished - EENT Eyes: Present: PERRL ENT: hearing intact, clear oral mucosa - Neck Neck: Present: supple, normal ROM - Respiratory Respiratory effort: normal Respiratory: bilateral: CTA - Cardiovascular Rhythm: regular Heart Sounds: Absent: rub, click - Extremities Extremities: No edema Peripheral Pulses: within normal limits - Abdominal General gastrointestinal: Present: soft, non-tender, non-distended, normal bowel sounds Female genitourinary: Present: normal - Integumentary Integumentary: Present: clear, warm, dry - Musculoskeletal Musculoskeletal: gait normal, strength equal bilaterally - Psychiatric Psychiatric: appropriate mood/affect, intact judgment & insight - Neurologic Neurologic: CNII-XII intact, moves all extremities - Additional findings Additional findings: lochia scant, fundus firm, bonding appropriately with Plan Activity: no restrictions Diet: regular Follow up with: HEAVEN NAVARRO MD [Primary Care Provider] - 7 Days (Congratulations! Please call [phone] to schedule your son's circumcision in 1 week and your visit in 6 weeks. Call for any questions or concerns. )
[2021-09-17] MEDS: PRENATAL VIT27-FE FUMARATE-FOLIC ACID VIT TAB PO SCH (10:29)
[2021-09-17 15:12] VITALS: BP 104/67
== END 2021-09-17 14:30 | disposition home or self-care (01) | DRG 807 ==
LOC: TRG 08:29 → APU 08:31 → UNDOADMIN 10:52 → TRG 11:01 → APU 12:12 → LD 12:12 → APU 09-16 01:52 → OB 09-16 02:54 → LD 09-16 02:54
PROVIDERS: ADMIT Obstetrics & Gynecology; ATTEND Obstetrics & Gynecology
PROC: 10E0XZZ Delivery of Products of Conception, External Approach (ICD-10-PCS; principal; 2021-09-16)
PROC: 10907ZC Drainage of Amniotic Fluid, Therapeutic from Products of Conception, Via Natural or Artificial Opening (ICD-10-PCS; 2021-09-16)
PROC: 0HQ9XZZ Repair Perineum Skin, External Approach (ICD-10-PCS; 2021-09-16)
PROC: 3E0R3BZ Introduction of Anesthetic Agent into Spinal Canal, Percutaneous Approach (ICD-10-PCS; 2021-09-16)
PROC: 00HU33Z Insertion of Infusion Device into Spinal Canal, Percutaneous Approach (ICD-10-PCS; 2021-09-16)
DX: O99.214 Obesity complicating childbirth (principal); Z37.0 Single live birth; Z3A.39 39 weeks gestation of pregnancy; O71.82 Other specified trauma to perineum and vulva; O70.0 First degree perineal laceration during delivery; Z20.822 Contact with and (suspected) exposure to COVID-19
CPT/HCPCS: 36415; 59025; 81001; 82565; 83615; 84450; 84460; 84550; 85014; 85018; 85027; 86592; 86850; 86900; 86901; 96360; 99211; G0378; J3490; G0463; J2590; J7120; U0003